=== PATIENT | female | born 1930 | race Caucasian/White ===

== ENCOUNTER 2017-08-10 08:05 | Observation (INO) | payer OTHER ==
--- NOTE | 2017-08-10 08:21 | EDPHY ---
H & P Stated Complaint: RLQ abd pain HPI/ROS: CHIEF COMPLAINT: Lower abdominal pain HISTORY OF PRESENT ILLNESS: The patient is an 87 y/o female with a history of a hysterectomy and a right hip surgery for a broken hip (3 years ago) complaining of right lower quadrant pain onset yesterday, 1 day ago. She has had episodes of right lower quadrant pain for an unknown period of time. Yesterday, the pain worsened prompting her visit. The pain is intermittent and worse with movement. When not moving, the pain dissipates completely. She hasn't had a bowel movement in 3 days. She denies fever, urinary complaints, nausea, vomiting, or any other associated symptoms. She has a history of having diarrhea after large meals. She denies having diarrhea today. REVIEW OF SYSTEMS: A ten point review of systems was performed and is negative with the exception of the items mentioned in the HPI. Past medical history: 1. Mitral valve regurgitation Past surgical history: 1. Pin placement in right hip 3 years ago 2. Hysterectomy with abdominal incision Family history: Non-contributory Social history: Lives in [place], son at bedside, retired, [employer] patient General Appearance: Alert. Vital signs reviewed. * Eyes: Pupils equal and round, no conjunctival injection, no discharge. Anicteric. ENT, Mouth: Mucous membranes are moist, no oropharyngeal erythema or edema. Neck: No lymphadenopathy, supple. Respiratory: Lungs are clear to auscultation; no wheezes, rales, or rhonchi. Cardiovascular: Regular rate and rhythm; no murmur, rub, or gallop. Gastrointestinal: Tenderness and pain with right leg movement in the lower right quadrant near pelvic bone, described as deep to the surface, abdomen is soft, no masses or organomegaly, bowel sounds normal. Skin: Warm and dry, no rashes on exposed skin, normal color. Back: Nontender to palpation over the thoracolumbar spine. No CVAT. Extremities: No lower extremity edema, no calf tenderness or swelling. Pulses: Neurological: Alert and oriented. Moving all four extremities easily and equally. Psychiatric: Normal affect. - Personal History Current Tetanus Diphtheria and Acellular Pertussis (TDAP): Yes - Medical/Surgical History Hx Asthma: No Hx Chronic Respiratory Disease: No Hx Diabetes: No Hx Cardiac Disease: No Hx Renal Disease: No Hx Cirrhosis: No Hx Alcoholism: No Hx HIV/AIDS: No Hx Splenectomy or Spleen Trauma: No Other PMH: R hip pinning - Social History Smoking Status: Never smoked Constitutional: Initial Vital Signs Temperature (C) 36.8 C 08/10/17 08:14 Heart Rate 90 08/10/17 08:14 Respiratory Rate 18 08/10/17 08:14 Blood Pressure 129/82 H 08/10/17 08:14 O2 Sat (%) 94 08/10/17 08:14 O2 Delivery Mode Room Air Allergies/Adverse Reactions: No Known Allergies Allergy (Unverified 08/10/17 08:13) Home Medications: Medication Instructions Recorded Flomax 08/10/17 Medical Decision Making - Diagnostics Imaging Results: Imaging Impressions Abdomen CT 08/10/17 08:33 Impression: 1. No significant abnormality seen within the abdomen and pelvis. 2. No CT evidence of appendicitis, abscess or bowel obstruction. 3. Degenerative disk disease with facet hypertrophy contributing to spinal stenosis at L3-L4 and at L4-L5. ED Course/Re-evaluation: Study: CT of the abdomen Indication: right lower quadrant pain Results: CT scan of the abdomen was obtained. The results of the study are: negative for acute process, degenerative disks and spinal stenosis at T2 and T3 The study was read by the radiologist, Dr. Ramirez. I viewed the images myself on the PACS system. The 12 lead EKG was interpreted by myself. Sinus rhythm. See hard copy and/or "tracemaster" electronic copy for interpretation. The patient has normal labs and a normal EKG. Her UA is overall shows some leukocytes and white blood cells. A nurse noticed abnormal tracings on her heart monitor. Her EKG was abnormal but unlikely to cause her symptoms. I ordered a troponin level to investigate cardiac cause. She continues to experience pain with movement. I reassessed her at 10:00 AM and found her condition unchanged. I further palpated her abdomen and did not have any remarkable findings. Her skin was normal to exam, which would not be conclusive with shingles. I had her move her legs both with and without my assistance, causing pain both ways. Her rectal exam showed a small amount of brown stool high up but was otherwise normal. The pain seems primarily in her hip. Plan for CT to visualize the hip. I spoke with the radiologist, Dr. Ramirez, at 10:38 who reports he had good visibility of the right hip on her previous CT. He has no abnormal findings in the hip. Her troponin came back negative. Admission may be warranted as no etiology is found for her pain and she remains unable to walk or move due to the pain. The patient was aided ambulation. She continues to need considerable help in moving due to pain. I plan to admit her since I have not found an etiology for her pain. I reached out to [place] [facility] and they agree to admit her here. I spoke with the hospitalist service regarding admission for this patient. They agree to admit. Dr. Marks will be the admitting physician. - Data Points Laboratory Results: Laboratory Results 08/10/17 08:32 08/10/17 08:32 08/10/17 08/10/17 08/10/17 10:15 09:28 08:32 WBC RBC Hgb POC Hgb Hct POC Hct MCV MCH MCHC RDW Plt Count MPV Neut % (Auto) Lymph % (Auto) Dickens % (Auto) Eos % (Auto) Baso % (Auto) Nucleat RBC Rel Count Absolute Neuts (auto) Absolute Lymphs (auto) Absolute Monos (auto) Absolute Eos (auto) Absolute Basos (auto) Absolute Nucleated RBC Immature Gran % Immature Gran # POC Sodium Sodium POC Potassium Potassium POC Chloride Chloride Carbon Dioxide Anion Gap POC BUN BUN Creatinine POC Creatinine Estimated GFR Glucose POC Glucose Calcium Troponin I < 0.012 ng/mL ng/mL < 0.012 ng/mL ng/mL (0.000-0.034) (0.000-0.034) Urine Color YELLOW Urine Appearance CLEAR Urine pH 5.0 (5.0-7.5) Ur Specific Jupiter 1.028 (1.002-1.030) Urine Protein NEGATIVE (NEGATIVE) Urine Ketones NEGATIVE (NEGATIVE) Urine Blood NEGATIVE (NEGATIVE) Urine Nitrate NEGATIVE (NEGATIVE) Urine Bilirubin NEGATIVE (NEGATIVE) Urine Urobilinogen NEGATIVE EU EU (0.2-1.0) Ur Leukocyte Esterase TRACE H (NEGATIVE) Urine RBC 1-3 /hpf /hpf (0-3) Urine WBC 5-10 /hpf H /hpf (0-3) Ur Epithelial Cells TRACE /lpf /lpf (NONE-1+) Urine Glucose NEGATIVE (NEGATIVE) 08/10/17 08/10/17 08/10/17 08:32 08:32 08:30 WBC 7.28 10^3/uL 10^3/uL (3.80-9.50) RBC 4.30 10^6/uL 10^6/uL (4.18-5.33) Hgb 13.7 g/dL g/dL (12.6-16.3) POC Hgb 13.6 gm/dL gm/dL (12.6-16.3) Hct 40.6 % % (38.0-47.0) POC Hct 40 % % (38-47) MCV 94.4 fL fL (81.5-99.8) MCH 31.9 pg pg (27.9-34.1) MCHC 33.7 g/dL g/dL (32.4-36.7) RDW 12.6 % % (11.5-15.2) Plt Count 207 10^3/uL 10^3/uL (150-400) MPV 10.3 fL fL (8.7-11.7) Neut % (Auto) 67.4 % % (39.3-74.2) Lymph % (Auto) 21.7 % % (15.0-45.0) Dickens % (Auto) 8.9 % % (4.5-13.0) Eos % (Auto) 1.2 % % (0.6-7.6) Baso % (Auto) 0.4 % % (0.3-1.7) Nucleat RBC Rel Count 0.0 % % (0.0-0.2) Absolute Neuts (auto) 4.90 10^3/uL 10^3/uL (1.70-6.50) Absolute Lymphs (auto) 1.58 10^3/uL 10^3/uL (1.00-3.00) Absolute Monos (auto) 0.65 10^3/uL 10^3/uL (0.30-0.80) Absolute Eos (auto) 0.09 10^3/uL 10^3/uL (0.03-0.40) Absolute Basos (auto) 0.03 10^3/uL 10^3/uL (0.02-0.10) Absolute Nucleated RBC 0.00 10^3/uL 10^3/uL (0-0.01) Immature Gran % 0.4 % % (0.0-1.1) Immature Gran # 0.03 10^3/uL 10^3/uL (0.00-0.10) POC Sodium 143 mEq/L mEq/L (134-144) Sodium 143 mEq/L mEq/L (134-144) POC Potassium 3.6 mEq/L mEq/L (3.3-5.0) Potassium 3.8 mEq/L mEq/L (3.5-5.2) POC Chloride 106 mEq/L mEq/L (97-110) Chloride 108 mEq/L mEq/L (97-110) Carbon Dioxide 23 mEq/l mEq/l (22-31) Anion Gap 12 mEq/L mEq/L (8-16) POC BUN 13 mg/dL mg/dL (7-23) BUN 13 mg/dL mg/dL (7-23) Creatinine 0.6 mg/dL mg/dL (0.6-1.0) POC Creatinine 0.6 mg/dL mg/dL (0.6-1.0) Estimated GFR > 60 Glucose 80 mg/dL mg/dL (70-100) POC Glucose 82 mg/dL mg/dL (70-100) Calcium 9.1 mg/dL mg/dL (8.5-10.4) Troponin I Urine Color Urine Appearance Urine pH Ur Specific Jupiter Urine Protein Urine Ketones Urine Blood Urine Nitrate Urine Bilirubin Urine Urobilinogen Ur Leukocyte Esterase Urine RBC Urine WBC Ur Epithelial Cells Urine Glucose Medications Given: Discontinued Medications Ketorolac Tromethamine (Toradol) 15 mg IVP EDNOW ONE Stop: 08/10/17 10:10 Last Admin: 08/10/17 10:40 Dose: 15 mg Point of Care Test Results: 08/10/17 08:30 POC Sodium 143 POC Potassium 3.6 POC Chloride 106 POC BUN 13 POC Creatinine 0.6 POC Glucose 82 Departure - Departure Disposition: [facility] Inpatient Acute Clinical Impression: Right hip pain, Unable to walk Condition: Fair Referrals: Patient,NotPresent [Unknown] - As per Instructions Report Scribed for: Khalida Ballard Report Scribed by: Sheyla Diaz Date of Report: 08/10/17 Time of Report: 08:42 Physician Review and Approval Statement: 08/10/17 08:20 Portions of this note were transcribed by the medical secretary. I, Dr. Khalida Ballard, personally performed the history, physical exam, and medical decision- making; and confirmed the accuracy of the information in the transcribed note.
[2017-08-10] MEDS ORDERED: IOPAMIDOL (ISOVUE-300) 100 ML BTL ONE (08:37)
[2017-08-10 08:39] LABS: % IMMATURE GRANULYOCYTES 0.4 % (0.0-1.1); ABSOLUTE IMMATURE GRANULOCYTES 0.03 10^3/uL (0.00-0.10); ADD DIFF? NO; ADD MORPH? NO; ADD SCAN? NO; ATYPICAL LYMPHOCYTE FLAG 10 (0-99); FRAGMENT RBC FLAG 0 (0-99); HEMATOCRIT 40.6 % (38.0-47.0); HEMOGLOBIN 13.7 g/dL (12.6-16.3); LEFT SHIFT FLG 0 (0-99); LIPEMIA HEMOLYSIS FLAG 80 (0-99); MEAN CELL HEMOGLOBIN 31.9 pg (27.9-34.1); MEAN CELL HEMOGLOBIN CONCENTR. 33.7 g/dL (32.4-36.7); MEAN CELL VOLUME 94.4 fL (81.5-99.8); MEAN PLATELET VOLUME 10.3 fL (8.7-11.7); PLATELET CLUMPS FLAG 0 (0-99); PLATELET COUNT 207 10^3/uL (150-400); RED CELL DISTRIBUTION WIDTH 12.6 % (11.5-15.2)
[2017-08-10 08:48] LABS: ANION GAP 12 mEq/L (8-16); CALCIUM 9.1 mg/dL (8.5-10.4); CARBON DIOXIDE 23 mEq/l (22-31); CHLORIDE 108 mEq/L (97-110); CREATININE 0.6 mg/dL (0.6-1.0); GLOMERULAR FILTRATION RATE > 60; GLUCOSE 80 mg/dL (70-100); POTASSIUM 3.8 mEq/L (3.5-5.2); SODIUM 143 mEq/L (134-144)
[2017-08-10 09:40] LABS: COLOR YELLOW; LEUKOCYTE ESTERASE,URINE TRACE (NEGATIVE); NITRITE,URINE NEGATIVE (NEGATIVE)
--- NOTE | 2017-08-10 09:41 | CPEKG ---
Heart Rate: 70 RR Interval: 857 P-R Interval: 132 QRSD Interval: 86 QT Interval: 396 QTC Interval: 428 P Cypress: 69 QRS Cypress: 68 EKG Severity - ABNORMAL ECG - EKG Impression: SINUS RHYTHM Electronically Signed By: Khalida Ballard 10-Aug-2017 15:27:16
[2017-08-10] MEDS ORDERED: KETOROLAC 30 MG/1 ML SDV IVP ONE (10:09)
--- NOTE | 2017-08-10 13:43 | ASMTCASEMG ---
Living Arrangements What is your living Answers: Alone arrangement? Who do you live with? Type Of Residence What kind of residence do Answers: Condo/Townhouse you live in? Stairs in Home Answers: No Environment Case Management Evaluation Functional: Able to Answers: Yes return Home with Prior Level of Function/Care Discharge Plan Comments Coordination Status Comments Notes: Pt seen in FED for pain. She is accompanied by her son Chris. Pt reported [facility] on the first floor with no stairs. She exercises for one hour per day five days per week and she is independent with her daily skills. At this time she is not receiving any type of in home services and she is eager to get back to her regular activities. DC plan TBD CM to follow Date Signed: 08/10/2017 01:43 PM Electronically Signed By:Dewayne Sullivan LCSW
[2017-08-10] MEDS ORDERED: ONDANSETRON 4 MG/2 ML VIAL IVP PRN (13:52)
[2017-08-10] MEDS ORDERED: ONDANSETRON DISINTEGRATING 4 MG TAB PO PRN (13:52)
[2017-08-10] MEDS: ACETAMINOPHEN 325 MG TAB PO PRN ×2 (15:33→20:29)
--- NOTE | 2017-08-10 18:06 | PDGENHP ---
History and Physical History and Physical: CC: Pain at right inguinal area HISTORY: This patient was doing well until 2 days ago. At that point she was at an elder his exercise class. She was sitting in a chair doing some hip and knee exercises when she noticed a twinge of discomfort in the right inguinal area. She felt okay after that but then yesterday she was watching a football game when she got up off of the stool she was sitting and she had a sudden onset of severe pain in that same right inguinal area and that pain has been persistent since. It is clearly aggravated by movements of her leg but not by weight-bearing on the right leg. She has a great deal of difficulty trying to get out of a chair or out of bed but when she is on her feet she can stand on her foot. There is some degree of constantly present pain there. There are no paresthesias other neurologic sending pains and there is nothing that sounds like ischemia in her leg. There is no fever symptoms. There is no clicking or popping. There was no fall or other injury or other activity that she knows of that would have brought this symptom on. She has never had this symptom before , however she did fall 3 years ago and break that right hip and had fixation screws placed. This hip has done well since her surgery until now. She otherwise feels fine with no other acute symptoms at this time. The emergency room evaluation was centered around abdominal pain but as I assess her story she really did not have any abdominal or digestive symptoms and has been eating well. Her last bowel movement was 2 days ago and was normal. There are no urinary symptoms. ROS: A comprehensive 10 system review revealed no other significant findings PAST MEDICAL HISTORY: Osteoporosis Traumatic right hip fracture with fixation screws 1 episode of gastroenteritis Tubal ligation FAMILY MEDICAL HISTORY: No concerning relevant symptoms in her family, family members mostly healthy SOCIAL HISTORY: Very upset about being here in the hospital on No use of tobacco or alcohol No falls at home except for the 1 3 years ago that broke her hip MEDICATIONS: The patients list has been reconciled by our clinical pharmacist in the EMR. I have reviewed the list and ordered appropriate medicines. PHYSICAL EXAMINATION: Vital Signs: Stable without fever Associate Application Developer: Examination: General: alert, oriented, good mentation, relaxed Skin: warm, dry, good color, no rash HEENT: normal Neck: no mass or jvd Resps: relaxed Lungs: clear breath sounds Heart: regular, no murmur Abdomen: soft, nondistended, nontender, +BS, no mass Upper Extremities: normal Lower Extremities: Obvious pain with active flexion of the right hip but no pain with any other motions of the right hip and I am able to passively flex it without much difficulty. No palpable mass, fluctuance or other abnormality in that area. No tenderness on deep palpation of the soft tissues and no tenderness of the bony hip structures or pelvic structures. 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 There is nothing to suggest any kind of abscess, soft tissue inflammation, mass or tumor, vascular disease, peritonitis or ascites, or other abnormalities. I did pay particular attention to her iliopsoas muscles and they are normal left and right. 12 LEAD EKG: An EKG was done in the ER, I reviewed the 12 lead tracing and see no concerning abnormalities at this time ASSESSMENT: -most likely iliopsoas strain as the cause of right inguinal pain with hip flexion -gait instability caused by her current muscular pain, in a patient with a previous history of fall and hip fracture leaving her at high risk PLANS: -observe overnight with rest for her pain, continue anti phlegm a torus and Tylenol -physical occupational therapies in the morning -watch for any fevers or other signs of other possible causes of this illness -probably home tomorrow or sooner she is able to move around more safely
[2017-08-11] MEDS ORDERED: ENOXAPARIN 40 MG/0.4 ML SYR SC SCH (09:00)
[2017-08-11 12:15] VITALS: BP 114/57; PULSE 65; RESP 14; TEMP 97.3; O2SAT 96
--- NOTE | 2017-08-11 13:39 | PDIAF ---
- Diagnosis Diagnosis: psoas muscle strain Code Status: Full Code - Medication Management Discharge Medications: Medications to Continue on Transfer Alendronate Sodium [Fosamax 70 MG (*)] 70 mg PO WE@0700 08/10/17 [Last Taken ] Discharge Medications: Refer to the Discharge Home Medication list for PRN reason. - Orders Services needed: Home Care, Physical Therapy Home Care Face to Face: I certify that this patient was under my care and that I had the required [id number] encounter meeting the encounter requirements on the discharge day. My findings support the fact that the patient is homebound as defined in Home Care Face to Face Continued: CMS Chapter 7 Medicare Benefits Manual 30.1.1 , The condition of the patient is such that there exists a normal inability to leave home and consequently, leaving home would require a considerable and taxing effort. Diet Recommendation: no restrictions on diet Diet Texture: Regular Texture Diet Equipment: walker - Follow Up Care Current Providers and Referrals: Patient,NotPresent [Unknown] - As per Instructions
--- NOTE | 2017-08-11 15:01 | ASMTCMCOM ---
CM Note CM Note Notes: Pt medically stable for d/c w [facility], orders sent in [employer]. Pt son will transport home. Date Signed: 08/11/2017 03:01 PM Electronically Signed By:HANK Castorena
--- NOTE | 2017-08-11 16:45 | PDDCSUM ---
Discharge Summary Discharge Summary: DISCHARGE DIAGNOSES: -ileus psoas muscle strain -gait instability and high fall risk due to the above injury HOSPITAL COURSE SUMMARY: This patient presented with right inguinal pain aggravated by hip flexion and other hip movements. Examination was consistent with iliopsoas strain. There is no evidence of infection and CT scan did not show any other soft tissue or acute bony abnormalities. She has an old repair of a hip fracture on the right and her radiologic studies and exam were not consistent with any new fracture or loosening or other problems with her hardware. The patient was observed in the hospital overnight due to the her not being able to move about safely on her feet with this pain. She was treated with nonsteroidal anti-inflammatory medicine Tylenol and rest as improved dramatically overnight. She is now doing transfers and ambulating independently quite safely. She is using a walker which she does at home. She is felt safe for discharge to home particularly as she has a lot of family to help look after her and assist her there. PENDING TEST RESULTS: None MEDICATION CHANGES: None FOLLOW-UP PLAN: With her primary care physician in 10-14 days or sooner as needed Arranged outpatient physical therapy to visit her to make sure that she is safe in the home setting
--- NOTE | 2017-08-11 16:49 | ASDISCHSUM ---
Discharge Information Plan Status:Home with Home Health Medically Cleared to Leave: Discharge Date:08/11/2017 04:24 PM CM D/C Disposition:Home Health Service ADT D/C Disposition:Home Health Service Projected Discharge Date:08/11/2017 11:00 AM Transportation at D/C:Family Discharge Delay Reason: Follow-Up Date:08/11/2017 11:00 AM Discharge Slot: Final Diagnosis: Placement Information Referral Type:*Home Health Care Services Referral ID:[id number] Provider Name:[facility] Address 1:[address] Address 2: City:[place] Selection Factors: State:[place] Patient Contact Information Contact Name:KATH Relationship: Address:[address] [address] Work Phone: [facility]:[place] Alternate Phone: State/Zip Code:[place] [address] Email: Financial Information Financial Class:Medicare Advantage Plans Primary Plan Desc:[employer] MEDICARE ADVANTAGE OUTPAT Primary Plan Number:[id number] Secondary Plan Desc: Secondary Plan Number: Assessment Information LACE LACE Acuity / Level of Care Answers: Was the patient admitted to hospital via the emergency department? Yes: Emergency dept visits in Answers: 1 last 6 months Score: 4 Date Signed: 08/10/2017 12:28 PM Electronically Signed By:Dewayne Sullivan LCSW [facility] Initial CM Assessment Living Arrangements What is your living Answers: Alone arrangement? Who do you live with? Type Of Residence What kind of residence do Answers: Condo/Townhouse you live in? Stairs in Home Answers: No Environment Case Management Evaluation Functional: Able to Answers: Yes return Home with Prior Level of Function/Care Discharge Plan Comments Coordination Status Comments Notes: Pt seen in FED for pain. She is accompanied by her son Chris. Pt reported she lives in a [facility] on the [facility] floor with no stairs. She exercises for one hour per day five days per week and she is independent with her daily skills. At this time she is not receiving any type of in home services and she is eager to get back to her regular activities. DC plan TBD CM to follow Date Signed: 08/10/2017 01:43 PM Electronically Signed By:Dewayne Sullivan LCSW BC CM Progress Note CM Note CM Note Notes: Pt medically stable for d/c w [facility], orders sent in [employer]. Pt son will transport home. Date Signed: 08/11/2017 03:01 PM Electronically Signed By:HANK Castorena Intervention Information Intervention Type:*HEART-Signed Date of Service:08/10/2017 01:44 PM Patient Type:Observation Staff Member:JENNIFRE Sullivan JoAnna Hours:0.25 Discipline:Talent Consultant Severity:1 (0-1 Hours) Comment:Heart for to Pt/ sgned . Pt is [employer]
[2017-08-12] MEDS ORDERED: ALENDRONATE SODIUM 70 MG TAB PO SCH (07:00)
== END 2017-08-11 16:24 | disposition home or self-care (01) ==
LOC: EDUNIT# → F3N 14:03
PROVIDERS: ADMIT Internal Medicine; ATTEND Internal Medicine
DX: M76.11 Psoas tendinitis, right hip (principal); R26.2 Difficulty in walking, not elsewhere classified
CPT/HCPCS: 74177; 93005; 97161; 97165; G0378; G8987; G8988; J1650; J1885; Q9967; 82947-QW

== ENCOUNTER 2018-01-23 13:06 | Emergency (ER) | payer OTHER ==
--- NOTE | 2018-01-23 13:25 | CPEKG ---
Heart Rate: 74 RR Interval: 811 P-R Interval: 132 QRSD Interval: 88 QT Interval: 400 QTC Interval: 444 P Proctor: 49 QRS Proctor: 45 T Wave Proctor: 46 EKG Severity - ABNORMAL ECG - EKG Impression: SINUS RHYTHM EKG Impression: NONSPECIFIC REPOL ABNORMALITY, DIFFUSE LEADS Electronically Signed By: Madhuri Mon 23-Jan-2018 14:53:40
[2018-01-23 13:43] LABS: PLATELET COUNT 248 10^3/uL (150-400)
--- NOTE | 2018-01-23 13:48 | EDPHY ---
H & P Time Seen by Provider: 01/23/18 13:22 HPI/ROS: CHIEF COMPLAINT: Dizziness HISTORY OF PRESENT ILLNESS: 87-year-old female presents with a 1 year history of intermittent dizziness. This morning, she was sitting at lunch, when she began to feel generalized weakness, associated with tremulousness. The symptoms lasted a few moments and then completely resolved. She has had similar intermittent symptoms over the last year, occurring randomly, approximately 1 episode every week. The episodes occur regardless of activity or positioning and generally spontaneously resolve within a few minutes. No associated palpitations, chest pain or shortness of breath. REVIEW OF SYSTEMS: complete 10 point ROS negative except at noted in the HPI - Medical/Surgical History Hx Asthma: No Hx Chronic Respiratory Disease: No Hx Diabetes: No Hx Cardiac Disease: No Hx Renal Disease: No Hx Cirrhosis: No Hx Alcoholism: No Hx HIV/AIDS: No Hx Splenectomy or Spleen Trauma: No Other PMH: Right hip fracture, osteoporosis - Social History Smoking Status: Never smoked Alcohol Use: Sober Drug Use: None Additional Social History: - Physical Exam Exam: General Appearance: Alert, pleasant Eyes: Pupils equal and round, no conjunctival pallor or injection ENT, Mouth: Mucous membranes moist Neck: Normal inspection Respiratory: Lungs are clear to auscultation Cardiovascular: Regular rate and rhythm, no murmur Gastrointestinal: Abdomen is soft and nontender Neurological: Alert, oriented x3, cranial nerves II through XII intact, motor 5 /5, sensory intact to light touch, normal gait Skin: Warm and dry Extremities: Nontender, no pedal edema Psychiatric: Mood and affect normal Constitutional: Initial Vital Signs Temperature (C) 36.7 C 01/23/18 13:06 Heart Rate 85 01/23/18 13:06 Respiratory Rate 16 01/23/18 13:06 Blood Pressure 146/79 H 01/23/18 13:06 O2 Sat (%) 98 01/23/18 13:06 O2 Delivery Mode Room Air Allergies/Adverse Reactions: No Known Allergies Allergy (Unverified 08/10/17 08:13) Home Medications: Medication Instructions Recorded Alendronate Sodium [Fosamax 70 MG 70 mg PO WE@0700 08/10/17 (*)] Medical Decision Making - Diagnostics EKG Interpretation: EKG interpreted by me reveals normal sinus rhythm, rate 74, nonspecific slight ST segment depression in diffuse leads. Interpretation: Abnormal EKG ED Course/Re-evaluation: This patient presents with intermittent dizziness. She had an episode of dizziness during my evaluation. environmental monitoring specialist revealed normal sinus rhythm and blood pressure was 149/84. Observation in the emergency department revealed normal sinus rhythm throughout and normal laboratory studies. She remained asymptomatic after the initial episode. Unclear etiology of the symptoms. I do not suspect acute coronary syndrome or CVA. I feel that she is safe and stable for discharge home with close outpatient follow-up, including Holter monitoring. Differential Diagnosis: Includes though not limited to acute coronary syndrome, CVA, TIA, dysrhythmia, hypoglycemia - Data Points Laboratory Results: Laboratory Results 01/23/18 13:06 01/23/18 13:06 01/23/18 01/23/18 13:06 13:06 WBC 6.83 10^3/uL 10^3/uL (3.80-9.50) RBC 4.56 10^6/uL 10^6/uL (4.18-5.33) Hgb 14.2 g/dL g/dL (12.6-16.3) Hct 42.1 % % (38.0-47.0) MCV 92.3 fL fL (81.5-99.8) MCH 31.1 pg pg (27.9-34.1) MCHC 33.7 g/dL g/dL (32.4-36.7) RDW 13.0 % % (11.5-15.2) Plt Count 248 10^3/uL 10^3/uL (150-400) MPV 10.9 fL fL (8.7-11.7) Neut % (Auto) 65.0 % % (39.3-74.2) Lymph % (Auto) 27.2 % % (15.0-45.0) Meigs % (Auto) 5.7 % % (4.5-13.0) Eos % (Auto) 0.9 % % (0.6-7.6) Baso % (Auto) 0.6 % % (0.3-1.7) Nucleat RBC Rel Count 0.0 % % (0.0-0.2) Absolute Neuts (auto) 4.44 10^3/uL 10^3/uL (1.70-6.50) Absolute Lymphs (auto) 1.86 10^3/uL 10^3/uL (1.00-3.00) Absolute Monos (auto) 0.39 10^3/uL 10^3/uL (0.30-0.80) Absolute Eos (auto) 0.06 10^3/uL 10^3/uL (0.03-0.40) Absolute Basos (auto) 0.04 10^3/uL 10^3/uL (0.02-0.10) Absolute Nucleated RBC 0.00 10^3/uL 10^3/uL (0-0.01) Immature Gran % 0.6 % % (0.0-1.1) Immature Gran # 0.04 10^3/uL 10^3/uL (0.00-0.10) Sodium 142 mEq/L mEq/L (135-145) Potassium 4.1 mEq/L mEq/L (3.3-5.0) Chloride 104 mEq/L mEq/L (97-110) Carbon Dioxide 25 mEq/l mEq/l (22-31) Anion Gap 13 mEq/L mEq/L (8-16) BUN 11 mg/dL mg/dL (7-23) Creatinine 0.6 mg/dL mg/dL (0.6-1.0) Estimated GFR > 60 Glucose 128 mg/dL H mg/dL (70-100) Calcium 8.5 mg/dL mg/dL (8.5-10.4) Departure - Departure Disposition: Home, Routine, Self-Care Clinical Impression: Dizziness Condition: Good Instructions: Dizziness (ED) Additional Instructions: Your evaluation in the emergency department is normal today. You will need further evaluation through her primary care physician. Please call to make an appointment. Referrals: [facility] ,. [Edm Groups for Call Sched] - As per Instructions (Call your [place] physician for follow-up on Thursday.)
[2018-01-23 14:46] VITALS: BP 117/73
== END 2018-01-23 14:45 | disposition home or self-care (01) ==
LOC: EDUNIT#
DX: R42 Dizziness and giddiness (principal)